=== PATIENT | male | born 1975 | race Caucasian/White ===

== ENCOUNTER 2018-10-28 19:48 | Inpatient (IN) | payer BC ==
[2018-10-28] MEDS ORDERED: ONDANSETRON 4 MG INJ IV (21:00)
[2018-10-28] MEDS ORDERED: ACETAMINOPHEN 325 MG TAB PO (21:00)
[2018-10-28] MEDS ORDERED: NACL 0.9% 3 ML SYG IV (21:00)
[2018-10-28 22:18] LABS: ADD MAN DIFF? NO
[2018-10-28 22:20] LABS: BASOPHILS % 0.5 % (0.0-2.0); EOSINOPHILS # 0.1 10^3/ul (0.0-0.5); EOSINOPHILS % 2.2 % (0.0-7.0); LYMPHOCYTES % 36.3 % (15.0-51.0); MEAN CORPUSCULAR HEMOGLOBIN 30.4 pg (29.0-33.0); MEAN PLATELET VOLUME 9.4 fl (7.4-10.4); MONOCYTE # 0.6 10^3/ul (0.3-0.9); MONOCYTES % 10.4 % (0.0-11.0); NEUTROPHIL # 2.8 10^3/ul (1.6-7.5); NEUTROPHILS % 50.4 % (39.0-77.0); PLATELET COUNT 264 10^3/UL (140-415); RED CELL DISTRIBUTION WIDTH 12.2 % (11.5-14.5)
[2018-10-28 22:20] LABS: WHITE BLOOD COUNT 5.5 10^3/ul (4.8-10.8)
[2018-10-28 22:44] LABS: ALANINE AMINOTRANSFERASE 28 IU/L (13-69); ALBUMIN 4.6 g/dl (3.3-4.9); ALBUMIN/GLOBULIN RATIO 1.43; ALKALINE PHOSPHATASE 55 IU/L (42-121); ANION GAP 13 (5-13); ASPARTATE AMINO TRANSFERASE 26 IU/L (15-46); BILIRUBIN,INDIRECT 0.6 mg/dl (0-1.1); BILIRUBIN,TOTAL 0.6 mg/dl (0.2-1.3); BLOOD UREA NITROGEN 12 mg/dl (7-20); CALCIUM 9.8 mg/dl (8.4-10.2); CARBON DIOXIDE 26 mmol/L (21-31); CHLORIDE 100 mmol/L (97-110); CREATININE 0.79 mg/dl (0.61-1.24); Estimated GFR > 60 mL/min (>60); GLUCOSE 86 mg/dl (70-220); MAGNESIUM 2.4 mg/dl (1.7-2.5); POTASSIUM 3.8 mmol/L (3.5-5.1); SODIUM 139 mmol/L (135-144); TOTAL PROTEIN 7.8 g/dl (6.1-8.1)
[2018-10-29] MEDS ORDERED: hydrOXYzine HCL 25 MG TAB PO (02:00)
[2018-10-29 06:03] LABS: ADD MAN DIFF? NO
[2018-10-29 06:06] LABS: WHITE BLOOD COUNT 4.8 10^3/ul (4.8-10.8)
[2018-10-29 06:06] LABS: BASOPHILS % 0.6 % (0.0-2.0); EOSINOPHILS # 0.1 10^3/ul (0.0-0.5); EOSINOPHILS % 2.3 % (0.0-7.0); HEMATOCRIT 41.4 % (42.0-52.0); HEMOGLOBIN 14.5 g/dl (14.0-18.0); LYMPHOCYTES # 1.5 10^3/ul (0.8-2.9); MEAN CORPUSCULAR HEMOGLOBIN 30.4 pg (29.0-33.0); MEAN CORPUSCULAR VOLUME 86.8 fl (82.0-101.0); MEAN PLATELET VOLUME 9.5 fl (7.4-10.4); MONOCYTE # 0.4 10^3/ul (0.3-0.9); MONOCYTES % 9.1 % (0.0-11.0); NEUTROPHIL # 2.8 10^3/ul (1.6-7.5); NEUTROPHILS % 56.8 % (39.0-77.0); PLATELET COUNT 281 10^3/UL (140-415); RED BLOOD COUNT 4.77 10^6/ul (4.70-6.10); RED CELL DISTRIBUTION WIDTH 12.2 % (11.5-14.5)
[2018-10-29] MEDS: PANTOPRAZOLE 40 MG INJ IV (06:06)
[2018-10-29 06:32] LABS: ALANINE AMINOTRANSFERASE 30 IU/L (13-69); ALBUMIN 4.6 g/dl (3.3-4.9); ALBUMIN/GLOBULIN RATIO 1.43; ALKALINE PHOSPHATASE 54 IU/L (42-121); ANION GAP 14 (5-13); ASPARTATE AMINO TRANSFERASE 24 IU/L (15-46); BILIRUBIN,INDIRECT 0.8 mg/dl (0-1.1); BILIRUBIN,TOTAL 0.8 mg/dl (0.2-1.3); BLOOD UREA NITROGEN 12 mg/dl (7-20); CALCIUM 9.8 mg/dl (8.4-10.2); CARBON DIOXIDE 27 mmol/L (21-31); CHLORIDE 99 mmol/L (97-110); CREATININE 0.74 mg/dl (0.61-1.24); Estimated GFR > 60 mL/min (>60); GLUCOSE 87 mg/dl (70-220); MAGNESIUM 2.3 mg/dl (1.7-2.5); POTASSIUM 3.7 mmol/L (3.5-5.1); SODIUM 140 mmol/L (135-144); TOTAL PROTEIN 7.8 g/dl (6.1-8.1)
[2018-10-29] MEDS: DIVALPROEX (EC) 500 MG TAB PO ×2 (08:37→20:48)
[2018-10-29] MEDS: BENZTROPINE 1 MG TAB PO ×2 (08:38→20:48)
[2018-10-29] MEDS: SUCRALFATE (100 MG/ML) 10ML CUP PO ×4 (08:38→20:47)
[2018-10-29] MEDS: PROPRANOLOL 20 MG TAB PO ×2 (08:38→20:48)
[2018-10-29] MEDS: clonAZEPAM 0.5 MG TAB PO ×3 (12:10→20:48)
[2018-10-29] MEDS: RISPERIDONE 1 MG TAB PO (12:10)
[2018-10-29] MEDS: RISPERIDONE 2 MG TAB PO (20:48)
[2018-10-30] MEDS: PANTOPRAZOLE (EC) 40 MG TAB PO (05:38)
[2018-10-30 07:07] LABS: ADD MAN DIFF? NO
[2018-10-30 07:15] LABS: BASOPHILS % 0.8 % (0.0-2.0); EOSINOPHILS # 0.2 10^3/ul (0.0-0.5); EOSINOPHILS % 4.6 % (0.0-7.0); HEMATOCRIT 42.2 % (42.0-52.0); HEMOGLOBIN 14.6 g/dl (14.0-18.0); LYMPHOCYTES # 2.1 10^3/ul (0.8-2.9); LYMPHOCYTES % 41.1 % (15.0-51.0); MEAN CORPUSCULAR HGB CONC 34.6 g/dl (32.0-37.0); MEAN CORPUSCULAR VOLUME 86.8 fl (82.0-101.0); MEAN PLATELET VOLUME 9.6 fl (7.4-10.4); MONOCYTE # 0.5 10^3/ul (0.3-0.9); MONOCYTES % 9.8 % (0.0-11.0); NEUTROPHIL # 2.2 10^3/ul (1.6-7.5); NEUTROPHILS % 43.3 % (39.0-77.0); PLATELET COUNT 283 10^3/UL (140-415); RED BLOOD COUNT 4.86 10^6/ul (4.70-6.10); RED CELL DISTRIBUTION WIDTH 12.3 % (11.5-14.5)
[2018-10-30 07:55] LABS: ANION GAP 13 (5-13); BLOOD UREA NITROGEN 16 mg/dl (7-20); CALCIUM 9.8 mg/dl (8.4-10.2); CARBON DIOXIDE 26 mmol/L (21-31); CHLORIDE 101 mmol/L (97-110); CREATININE 0.85 mg/dl (0.61-1.24); Estimated GFR > 60 mL/min (>60); GLUCOSE 91 mg/dl (70-220); POTASSIUM 4.1 mmol/L (3.5-5.1); SODIUM 140 mmol/L (135-144)
[2018-10-30] MEDS: SUCRALFATE (100 MG/ML) 10ML CUP PO ×4 (08:10→20:20)
[2018-10-30] MEDS: DIVALPROEX (EC) 500 MG TAB PO ×2 (08:10→20:20)
[2018-10-30] MEDS: RISPERIDONE 2 MG TAB PO ×2 (08:11→20:19)
[2018-10-30] MEDS: PROPRANOLOL 20 MG TAB PO ×2 (08:11→20:21)
[2018-10-30] MEDS: clonAZEPAM 0.5 MG TAB PO ×3 (08:11→20:19)
[2018-10-30 08:16] LABS: PHOSPHORUS 4.1 mg/dl (2.5-4.9)
[2018-10-30 08:16] LABS: MAGNESIUM 2.5 mg/dl (1.7-2.5)
[2018-10-30] MEDS: BENZTROPINE 1 MG TAB PO ×2 (08:18→20:19)
[2018-10-30] MEDS ORDERED: ONDANSETRON INJ 8 MG in DEXTROSE 5% 50 ML IV (09:30)
[2018-10-30] MEDS: ONDANSETRON INJ 8 MG in DEXTROSE 5% 50 ML IV (10:19)
[2018-10-30] MEDS: LORAZEPAM 1 MG TAB PO (18:35)
[2018-10-31] MEDS: PANTOPRAZOLE (EC) 40 MG TAB PO (05:47)
[2018-10-31] MEDS: SUCRALFATE (100 MG/ML) 10ML CUP PO ×4 (08:58→20:26)
[2018-10-31] MEDS: BENZTROPINE 1 MG TAB PO ×2 (08:59→20:26)
[2018-10-31] MEDS: RISPERIDONE 2 MG TAB PO ×2 (08:59→20:26)
[2018-10-31] MEDS: DIVALPROEX (EC) 500 MG TAB PO ×2 (08:59→20:27)
[2018-10-31] MEDS: PROPRANOLOL 20 MG TAB PO ×2 (08:59→20:28)
[2018-10-31] MEDS: clonAZEPAM 0.5 MG TAB PO ×3 (08:59→20:26)
[2018-10-31] MEDS: ONDANSETRON INJ 8 MG in DEXTROSE 5% 50 ML IV (09:25)
[2018-10-31] MEDS: LORAZEPAM 1 MG TAB PO (15:11)
[2018-11-01] MEDS: ACETAMINOPHEN 325 MG TAB PO (00:19)
[2018-11-01] MEDS: PANTOPRAZOLE (EC) 40 MG TAB PO (06:00)
[2018-11-01] MEDS: clonAZEPAM 0.5 MG TAB PO ×2 (09:10→12:18)
[2018-11-01] MEDS: SUCRALFATE (100 MG/ML) 10ML CUP PO ×2 (09:10→12:18)
[2018-11-01] MEDS: RISPERIDONE 2 MG TAB PO (09:11)
[2018-11-01] MEDS: BENZTROPINE 1 MG TAB PO (09:11)
[2018-11-01] MEDS: DIVALPROEX (EC) 500 MG TAB PO (09:12)
[2018-11-01] MEDS: PROPRANOLOL 20 MG TAB PO (09:13)
== END 2018-11-01 14:00 | DRG 918 ==
LOC: 6WM 19:48 → 5EC 10-29 15:30
DX: T43.221A Poisoning by selective serotonin reuptake inhibitors, accidental (unintentional), initial encounter (principal); F20.0 Paranoid schizophrenia; M48.54XA Collapsed vertebra, not elsewhere classified, thoracic region, initial encounter for fracture; E87.6 Hypokalemia; R19.7 Diarrhea, unspecified; R11.2 Nausea with vomiting, unspecified; F63.81 Intermittent explosive disorder; R25.1 Tremor, unspecified; F17.210 Nicotine dependence, cigarettes, uncomplicated
CPT/HCPCS: 80048; 80053; 83735; 84100; 84443; 85025